=== PATIENT | female | born 1985 | race Caucasian/White ===

== ENCOUNTER → 2018-01-08 | Outpatient (CLI) | payer OTHER | END | disposition home or self-care (01) | LOC: KCIC US 13:24 | DX: Z34.92 Encounter for supervision of normal pregnancy, unspecified, second trimester (principal); Z3A.18 18 weeks gestation of pregnancy | CPT/HCPCS: 76805 ==

== ENCOUNTER 2018-06-07 19:03 | Inpatient (IN) | payer OTHER ==
[~2018-06-07] VITALS: Ht 160 cm; Wt 64.0 kg
[2018-06-07] MEDS ORDERED: 0.9 % SODIUM CHLORIDE 10 ML DISP.SYRIN. IV PRN (19:15)
[2018-06-07] MEDS ORDERED: TERBUTALINE 1 MG/ML VIAL. SQ PRN (19:15)
[2018-06-07] MEDS ORDERED: LIDOCAINE 1% PF 30 ML VIAL. INJ PRN (19:15)
[2018-06-07] MEDS ORDERED: OXYTOCIN 30 UNIT/500 ML PREMIX 500 ML IV PRN (19:15)
[2018-06-07] MEDS ORDERED: ONDANSETRON PF 4 MG/2 ML VIAL. IV PRN (19:15)
[2018-06-07] MEDS ORDERED: fentaNYL PF VIAL 100 MCG/2 ML VIAL IV PRN ×2 (19:15)
[2018-06-07] MEDS ORDERED: DINOPROSTONE 10 MG SUPP.VAG VG ONE (19:30)
[2018-06-07] MEDS ORDERED: PENICILLIN G K 5,000,000 UNIT in IV DEXTROSE 5% 100ML 100 ML IV ONE (19:30)
[2018-06-07 19:51] LABS: BILIRUBIN,URINE NEGATIVE (NEG); CLARITY,URINE CLEAR; COLOR,URINE YELLOW; NITRITE,URINE NEGATIVE (NEG); PH,URINE 6.5; PROTEIN,URINE NEGATIVE (NEG-TRACE); UROBILINOGEN,URINE 0.2 mg/dL (0.2 mg/dL)
[2018-06-07 20:02] LABS: BACTERIA,URINE FEW /HPF (0-FEW); SQUAMOUS EPITHELIAL CELL,UR MOD /LPF
[2018-06-07] MEDS: IV RINGERS,LACTATED 1000ML 1,000 ML IV SCH (20:25)
[2018-06-07 20:32] LABS: BASO % 0 % (0-3); EOS # 0.2 x10^3/uL (0.0-0.7); EOS % 2 % (0-3); HEMATOCRIT 36.1 % (36.0-47.0); HEMOGLOBIN 12.7 g/dL (12.0-15.5); LYMPH # 1.3 x10^3/uL (1.0-4.8); LYMPH % 15 % (24-48); MEAN CORPUSCULAR HEMOGLOBIN 32 pg (25-35); MEAN CORPUSCULAR HGB CONC 35 g/dL (31-37); MEAN CORPUSCULAR VOLUME 91 fL (79-100); MONO # 0.7 x10^3/uL (0.0-1.1); MONO % 8 % (0-9); NEUT # 6.4 x10^3uL (1.8-7.7); NEUT % 75 % (31-73); PLATELET COUNT 143 x10^3/uL (140-400); RED BLOOD COUNT 3.97 x10^6/uL (3.50-5.40); RED CELL DISTRIBUTION WIDTH 12.6 % (11.5-14.5); WHITE BLOOD COUNT 8.5 x10^3/uL (4.0-11.0)
[2018-06-07 21:07] LABS: PLT ESTIMATE ADEQUATE (ADEQUATE)
[2018-06-07] MEDS ORDERED: PENICILLIN G K 2,500,000 UNIT in IV DEXTROSE 5% 50 ML IV SCH (23:30)
[2018-06-08] MEDS ORDERED: PENICILLIN G K 5,000,000 UNIT in IV DEXTROSE 5% 100ML 100 ML IV ONE (06:00)
[2018-06-08] MEDS: OXYTOCIN 30 UNIT/500 ML PREMIX 500 ML IV PRN (06:47)
[2018-06-08 07:42] VITALS: BP 124/76
--- NOTE | 2018-06-08 08:19 | PDOC1 ---
OB - History Hx of Present Care: Good Care Ultrasounds: Normal mid trimester US Obstetrical Complications: None Medical Complications: None Past Family/Social History * Past Medical, Surgical, Family and Obstetric Histories reviewed from chart. Rubella: Immune RPR/VDRL: Negative GBS Status: Positive HBsAG: Negative OB - Chief Complaint & HPI Date of Admission: Date of Admission: Jun 07, 2018 at 19:03 Chief Complaint/History : 1 Para: 0 EGA: 40 Reason for admission: induction of labor Indication for induction: post dates, maternal discomfort Admission Nurse Assessment Rev: Yes OB - Admission Exam Physical Exam Vitals: VS - Last 72 Hours, by Label Date Time Temp Pulse Resp B/P (MAP) Pulse Ox O2 Delivery O2 Flow Rate FiO2 06/08/18 07:42 97.7 78 16 124/76 (92) 95 Room Air 97.7 HEENT: Normal Heart: Regular Rate Lungs: Clear Abdomen: Gravid, Non tender, Soft Extremities: Edema Reflexes: Normal Cervical Dilatation: 1cm Effacement: 50% Station: -3 Membranes: Intact Heart Rate: Normal Accelerations: Accelerations Present Decelerations: No decelerations Contractions on Admission: None Text A: 40 wks IUP IOL post dates GBS positive P: Admit IOL cervidil, then pitocin. Start Pen G for GBS prophylaxis. JUSTA BURNETT Jr, MD Jun 08, 2018 08:19
[2018-06-08] MEDS: PENICILLIN G K 2,500,000 UNIT in IV DEXTROSE 5% 50 ML IV SCH ×2 (11:00→13:57)
[2018-06-08] MEDS: IV RINGERS,LACTATED 1000ML 1,000 ML IV SCH (11:00)
[2018-06-08] MEDS ORDERED: OXYTOCIN 30 UNIT/500 ML PREMIX 500 ML IV PRN (17:00)
[2018-06-08] MEDS ORDERED: DINOPROSTONE 10 MG SUPP.VAG VG ONE (17:30)
[2018-06-09] MEDS ORDERED: OXYTOCIN PREMIX 30 UNIT/500 ML BAG. IV ONE (06:00)
[2018-06-09] MEDS: PENICILLIN G K 2,500,000 UNIT in IV DEXTROSE 5% 50 ML IV SCH ×3 (06:25→16:19)
[2018-06-09] MEDS: IV RINGERS,LACTATED 1000ML 1,000 ML IV SCH ×3 (06:25→19:30)
--- NOTE | 2018-06-09 08:22 | PDOC ---
OB Progress Note Date of Service 06/09/18 Time of Evaluation 0820 Notes Pt. feeling well. Pt. had cervidil overnight, and now pitocin. Lab Laboratory Tests Test 06/07/18 19:40 06/07/18 20:20 Urine Collection Type Unknown Urine Color Yellow Urine Clarity Clear Urine pH 6.5 Urine Specific [place] 1.010 Urine Protein Negative mg/dL (NEG-TRACE) Urine Glucose (UA) 100 mg/dL (NEG) Urine Ketones (Stick) Negative mg/dL (NEG) Urine Blood Large (NEG) Urine Nitrite Negative (NEG) Urine Bilirubin Negative (NEG) Urine Urobilinogen Dipstick 0.2 mg/dL (0.2 mg/dL) Urine Leukocyte Esterase Small (NEG) Urine RBC 1-2 /HPF (0-2) Urine WBC 11-20 /HPF (0-4) Urine Squamous Epithelial Cells Mod /LPF Urine Bacteria Few /HPF (0-FEW) White Blood Count 8.5 x10^3/uL (4.0-11.0) Red Blood Count 3.97 x10^6/uL (3.50-5.40) Hemoglobin 12.7 g/dL (12.0-15.5) Hematocrit 36.1 % (36.0-47.0) Mean Corpuscular Volume 91 fL (79-100) Mean Corpuscular Hemoglobin 32 pg (25-35) Mean Corpuscular Hemoglobin Concent 35 g/dL (31-37) Red Cell Distribution Width 12.6 % (11.5-14.5) Platelet Count 143 x10^3/uL (140-400) Neutrophils (%) (Auto) 75 % (31-73) Lymphocytes (%) (Auto) 15 % (24-48) Monocytes (%) (Auto) 8 % (0-9) Eosinophils (%) (Auto) 2 % (0-3) Basophils (%) (Auto) 0 % (0-3) Neutrophils # (Auto) 6.4 x10^3uL (1.8-7.7) Lymphocytes # (Auto) 1.3 x10^3/uL (1.0-4.8) Monocytes # (Auto) 0.7 x10^3/uL (0.0-1.1) Eosinophils # (Auto) 0.2 x10^3/uL (0.0-0.7) Basophils # (Auto) 0.0 x10^3/uL (0.0-0.2) Platelet Estimate Adequate (ADEQUATE) Large Platelets Few Treponema pallidum Antibody Nonreactive (Nonreactive) Medications Current Medications Sodium Chloride (Normal Saline Flush) 3 ml QSHIFT PRN IV AFTER MEDS AND BLOOD DRAWS; Start 06/07/18 at 19:15 Ringer's Solution 1,000 ml @ 125 mls/hr Q8H IV Last administered on 06/09/18at 06:25; Start 06/07/18 at 19:30 Fentanyl Citrate (Fentanyl 2ml Vial) 50 mcg PRN Q30MIN PRN IV Mild to moderate pain; Start 06/07/18 at 19:15 Fentanyl Citrate (Fentanyl 2ml Vial) 100 mcg PRN Q30MIN PRN IV Severe pain; Start 06/07/18 at 19:15 Acetaminophen (Tylenol) 650 mg PRN Q6HRS PRN PO MILD PAIN / TEMP; Start at 19:15 Ondansetron HCl (Zofran) 4 mg PRN Q4HRS PRN IV NAUSEA/VOMITING; Start 06/07/18 at 19:15 Terbutaline Sulfate (Brethine) 0.25 mg 1X PRN PRN SQ SEE COMMENTS; Start at 19:15; Stop 06/08/18 at 19:14; Status DC Lidocaine HCl (Xylocaine 1% Pf 30ml Vial) 30 ml 1X PRN PRN INJ SEE COMMENTS; Start 06/07/18 at 19:15; Stop 06/09/18 at 19:14 Oxytocin/Sodium Chloride 500 ml @ 0 mls/hr CONT PRN IV SEE I/O RECORD Last administered on 06/08/18at 06:47; Start 06/07/18 at 19:15 Oxytocin/Sodium Chloride 500 ml @ 0 mls/hr CONT PRN PRN IV Post delivery bleeding; Start 06/07/18 at 19:15 Ibuprofen (Motrin) 800 mg PRN Q6HRS PRN PO PAIN; Start 06/07/18 at 19:15 Penicillin G Potassium [id number] unit/Dextrose 100 ml @ 100 mls/hr 1X ONCE IV ; Start 06/07/18 at 19:30; Stop 06/07/18 at 20:29; Status Cancel Penicillin G Potassium [id number] unit/Dextrose 50 ml @ 100 mls/hr Q4H IV ; Start 06/07/18 at 23:30; Stop 06/07/18 at 23:30; Status DC Dinoprostone (Cervidil) 10 mg 1X ONCE VG Last administered on 06/07/18at 20:25 ; Start 06/07/18 at 19:30; Stop 06/07/18 at 19:31; Status DC Penicillin G Potassium [id number] unit/Dextrose 50 ml @ 100 mls/hr Q4H IV Last administered on 06/08/18at 13:57; Start 06/08/18 at 10:00; Stop 06/09/18 at 05:02 ; Status DC Penicillin G Potassium [id number] unit/Dextrose 100 ml @ 100 mls/hr 1X ONCE IV Last administered on 06/08/18at 06:00; Start 06/08/18 at 06:00; Stop 06/08/18 at 06:59; Status DC Dinoprostone (Cervidil) 10 mg 1X ONCE VG Last administered on 06/08/18at 19:37 ; Start 06/08/18 at 17:30; Stop 06/08/18 at 17:31; Status DC Oxytocin/Sodium Chloride 500 ml @ 0 mls/hr CONT PRN IV SEE I/O RECORD; Start at 17:00 Penicillin G Potassium [id number] unit/Dextrose 50 ml @ 100 mls/hr Q4H IV Last administered on 06/09/18at 06:25; Start 06/09/18 at 06:00 Exam Cvx: 50/-3 Assessment 40+3 wks IUP IOL post dates Plan of Care: Continue current Tx, Mgmt (If no progress, then cervidil # 3 tonight. THen pitocin in am. ) JUSTA BURNETT Jr, MD Jun 09, 2018 08:22
[2018-06-09] MEDS ORDERED: DINOPROSTONE 10 MG SUPP.VAG VG ONE (20:45)
[2018-06-10] MEDS: IV RINGERS,LACTATED 1000ML 1,000 ML IV SCH ×5 (03:30→19:30)
[2018-06-10] MEDS: PENICILLIN G K 2,500,000 UNIT in IV DEXTROSE 5% 50 ML IV SCH ×8 (06:00→22:00)
[2018-06-10 07:31] VITALS: BP 110/67
[2018-06-10] MEDS: OXYTOCIN 30 UNIT/500 ML PREMIX 500 ML IV PRN (07:38)
[2018-06-10] MEDS ORDERED: ROPIVacaine 0.2% IN 0.9%NACL PF 40 MG/20 ML DISP.SYRIN. ONE ×2 (11:00→11:08)
[2018-06-10] MEDS ORDERED: miSOPROStol 200MCG TAB 200 MCG TABLET ONE (11:00)
[2018-06-10] MEDS ORDERED: L&D EPIDURAL 50 ML SYRINGE. EP ONE ×2 (11:00→15:00)
[2018-06-10] MEDS ORDERED: L&D EPIDURAL SYRINGE 50 ML EP ONE (11:09)
[2018-06-10] MEDS ORDERED: BUPIVACAINE MPF 0.25% 10 ML VIAL. EPI PRN (11:15)
[2018-06-10] MEDS ORDERED: L&D EPIDURAL SYRINGE 50 ML EP PRN (11:15)
[2018-06-10] MEDS ORDERED: NALOXONE 0.4 MG/ML VIAL. IV PRN (11:15)
[2018-06-10] MEDS ORDERED: IV RINGERS,LACTATED 1000ML 1,000 ML IV SCH (11:30)
[2018-06-10] MEDS ORDERED: LIDOCAINE 1% PF 30 ML VIAL. ONE (18:59)
[2018-06-10] MEDS ORDERED: miSOPROStol 200MCG TAB 200 MCG TABLET PR ONE (19:30)
--- NOTE | 2018-06-10 21:11 | PDOC ---
VAGINAL DELIVERY DATE DATE: 06/10/18 TIME: 21:09 : 1 Para: 1 EGA: 40 VAGINAL DELIVERY: VTX VACCUM ASSISTED: Yes NUMBER OF PULLS 5 NUMBER OF POP OFFS none MAXIMUM PRESSURE 600 mmhg PLACENTA: Spontaneous 8/9 SEX: Male WEIGHT Weight [2905 gm ] Nuchal Cord: Yes, Times 1 Amniotic Fluid: Clear PAIN: Epidural EPISIOTOMY: No EXTENSION: Yes (2nd degree midline laceration) REPAIRED WITH 2-0 vicryl EBL 300 ml COMPLICATIONS none CONDITION pt. stable Signs of Intrauterine Infectio: None Shoulder Dystocia: No JUSTA BURNETT Jr, MD Jun 10, 2018 21:11
[2018-06-10] MEDS ORDERED: 0.9 % SODIUM CHLORIDE 10 ML DISP.SYRIN. IV PRN (21:15)
[2018-06-10] MEDS ORDERED: oxyCODONE/APAP 5/325 1 TAB TABLET PO PRN (21:15)
[2018-06-10] MEDS ORDERED: SIMETHICONE 80 MG TAB.CHEW PO PRN (21:15)
[2018-06-10] MEDS ORDERED: ACETAMINOPHEN 325 MG TABLET. PO PRN (21:15)
[2018-06-10] MEDS ORDERED: diphenhydrAMINE HCL 25 MG CAPSULE PO PRN (21:15)
[2018-06-10] MEDS ORDERED: MAG HYDROX/ALUMINUM HYD/SIMETH 30 ML ORAL.SUSP PO PRN (21:15)
[2018-06-10] MEDS ORDERED: MMR per PROTOCOL. MC PRN (21:15)
[2018-06-10] MEDS ORDERED: HYDROCORTISONE 1% TOPICAL OINTMENT 30GM TUBE. TP PRN (21:15)
[2018-06-10] MEDS ORDERED: ZOLPIDEM 5 MG TABLET. PO PRN (21:15)
[2018-06-10] MEDS ORDERED: IBUPROFEN 800 MG TABLET. PO PRN (21:15)
[2018-06-10] MEDS ORDERED: BENZOCAINE 20% TOPICAL AEROSOL SPRAY 57GM CAN. TP PRN (21:15)
[2018-06-10] MEDS ORDERED: PHENYLEPH/MINERAL OIL/PETROLAT RECTAL OINTMENT 28GM TUBE. RC PRN (21:15)
[2018-06-10] MEDS ORDERED: OXYTOCIN 30 UNIT/500 ML PREMIX 500 ML IV PRN (21:15)
[2018-06-10] MEDS ORDERED: MAGNESIUM HYDROXIDE 2,400 MG/30 ML ORAL.SUSP. PO PRN (21:15)
[2018-06-10] MEDS: IBUPROFEN 800 MG TABLET. PO PRN (23:29)
[2018-06-10 23:50] VITALS: BP 107/69
[2018-06-11 00:55] VITALS: BP 102/55
[2018-06-11] MEDS: PENICILLIN G K 2,500,000 UNIT in IV DEXTROSE 5% 50 ML IV SCH ×5 (02:00→18:00)
[2018-06-11] MEDS: IV RINGERS,LACTATED 1000ML 1,000 ML IV SCH ×3 (03:30→19:30)
[2018-06-11 04:30] VITALS: BP 93/48
[2018-06-11 04:41] LABS: BASO # 0.1 x10^3/uL (0.0-0.2); BASO % 0 % (0-3); EOS % 0 % (0-3); HEMATOCRIT 26.3 % (36.0-47.0); HEMOGLOBIN 9.3 g/dL (12.0-15.5); LYMPH # 0.9 x10^3/uL (1.0-4.8); LYMPH % 4 % (24-48); MEAN CORPUSCULAR HEMOGLOBIN 32 pg (25-35); MEAN CORPUSCULAR HGB CONC 35 g/dL (31-37); MEAN CORPUSCULAR VOLUME 92 fL (79-100); MONO # 1.1 x10^3/uL (0.0-1.1); MONO % 5 % (0-9); NEUT # 18.5 x10^3uL (1.8-7.7); NEUT % 90 % (31-73); PLATELET COUNT 120 x10^3/uL (140-400); RED BLOOD COUNT 2.88 x10^6/uL (3.50-5.40); RED CELL DISTRIBUTION WIDTH 12.6 % (11.5-14.5); WHITE BLOOD COUNT 20.5 x10^3/uL (4.0-11.0)
[2018-06-11 05:26] LABS: % BANDS 11 % (0-9); % LYMPHS 2 % (24-48); % MONOS 4 % (0-10); % SEGS 83 % (35-66)
[2018-06-11 05:27] LABS: PLT ESTIMATE ADEQUATE (ADEQUATE)
[2018-06-11 05:50] VITALS: BP 94/49
[2018-06-11 08:00] VITALS: BP 104/64
--- NOTE | 2018-06-11 08:10 | PDOC ---
OB Progress Note Date of Service 06/11/18 Time of Evaluation 0810 Notes Pt. feeling well. No complaints. Lab Laboratory Tests Test 06/11/18 04:25 White Blood Count 20.5 x10^3/uL (4.0-11.0) Red Blood Count 2.88 x10^6/uL (3.50-5.40) Hemoglobin 9.3 g/dL (12.0-15.5) Hematocrit 26.3 % (36.0-47.0) Mean Corpuscular Volume 92 fL (79-100) Mean Corpuscular Hemoglobin 32 pg (25-35) Mean Corpuscular Hemoglobin Concent 35 g/dL (31-37) Red Cell Distribution Width 12.6 % (11.5-14.5) Platelet Count 120 x10^3/uL (140-400) Neutrophils (%) (Auto) 90 % (31-73) Lymphocytes (%) (Auto) 4 % (24-48) Monocytes (%) (Auto) 5 % (0-9) Eosinophils (%) (Auto) 0 % (0-3) Basophils (%) (Auto) 0 % (0-3) Neutrophils # (Auto) 18.5 x10^3uL (1.8-7.7) Lymphocytes # (Auto) 0.9 x10^3/uL (1.0-4.8) Monocytes # (Auto) 1.1 x10^3/uL (0.0-1.1) Eosinophils # (Auto) 0.0 x10^3/uL (0.0-0.7) Basophils # (Auto) 0.1 x10^3/uL (0.0-0.2) Segmented Neutrophils % 83 % (35-66) Band Neutrophils % 11 % (0-9) Lymphocytes % 2 % (24-48) Monocytes % 4 % (0-10) Platelet Estimate Adequate (ADEQUATE) Large Platelets Occ Laboratory Tests Test 06/11/18 04:25 White Blood Count 20.5 x10^3/uL (4.0-11.0) Red Blood Count 2.88 x10^6/uL (3.50-5.40) Hemoglobin 9.3 g/dL (12.0-15.5) Hematocrit 26.3 % (36.0-47.0) Mean Corpuscular Volume 92 fL (79-100) Mean Corpuscular Hemoglobin 32 pg (25-35) Mean Corpuscular Hemoglobin Concent 35 g/dL (31-37) Red Cell Distribution Width 12.6 % (11.5-14.5) Platelet Count 120 x10^3/uL (140-400) Neutrophils (%) (Auto) 90 % (31-73) Lymphocytes (%) (Auto) 4 % (24-48) Monocytes (%) (Auto) 5 % (0-9) Eosinophils (%) (Auto) 0 % (0-3) Basophils (%) (Auto) 0 % (0-3) Neutrophils # (Auto) 18.5 x10^3uL (1.8-7.7) Lymphocytes # (Auto) 0.9 x10^3/uL (1.0-4.8) Monocytes # (Auto) 1.1 x10^3/uL (0.0-1.1) Eosinophils # (Auto) 0.0 x10^3/uL (0.0-0.7) Basophils # (Auto) 0.1 x10^3/uL (0.0-0.2) Segmented Neutrophils % 83 % (35-66) Band Neutrophils % 11 % (0-9) Lymphocytes % 2 % (24-48) Monocytes % 4 % (0-10) Platelet Estimate Adequate (ADEQUATE) Large Platelets Occ Medications Current Medications Sodium Chloride (Normal Saline Flush) 3 ml QSHIFT PRN IV AFTER MEDS AND BLOOD DRAWS; Start 06/07/18 at 19:15 Ringer's Solution 1,000 ml @ 125 mls/hr Q8H IV Last administered on 06/10/18at 13:19; Start 06/07/18 at 19:30 Fentanyl Citrate (Fentanyl 2ml Vial) 50 mcg PRN Q30MIN PRN IV Mild to moderate pain; Start 06/07/18 at 19:15 Fentanyl Citrate (Fentanyl 2ml Vial) 100 mcg PRN Q30MIN PRN IV Severe pain; Start 06/07/18 at 19:15 Acetaminophen (Tylenol) 650 mg PRN Q6HRS PRN PO MILD PAIN / TEMP; Start at 19:15 Ondansetron HCl (Zofran) 4 mg PRN Q4HRS PRN IV NAUSEA/VOMITING Last administered on 06/11/18at 02:08; Start 06/07/18 at 19:15 Terbutaline Sulfate (Brethine) 0.25 mg 1X PRN PRN SQ SEE COMMENTS; Start at 19:15; Stop 06/08/18 at 19:14; Status DC Lidocaine HCl (Xylocaine 1% Pf 30ml Vial) 30 ml 1X PRN PRN INJ SEE COMMENTS; Start 06/07/18 at 19:15; Stop 06/09/18 at 19:14; Status DC Oxytocin/Sodium Chloride 500 ml @ 0 mls/hr CONT PRN IV SEE I/O RECORD Last administered on 06/10/18at 07:38; Start 06/07/18 at 19:15 Oxytocin/Sodium Chloride 500 ml @ 0 mls/hr CONT PRN PRN IV Post delivery bleeding; Start 06/07/18 at 19:15 Ibuprofen (Motrin) 800 mg PRN Q6HRS PRN PO PAIN MODERATE Last administered on at 23:29; Start 06/07/18 at 19:15 Penicillin G Potassium 4371118 unit/Dextrose 100 ml @ 100 mls/hr 1X ONCE IV ; Start 06/07/18 at 19:30; Stop 06/07/18 at 20:29; Status Cancel Penicillin G Potassium 2400686 unit/Dextrose 50 ml @ 100 mls/hr Q4H IV ; Start 06/07/18 at 23:30; Stop 06/07/18 at 23:30; Status DC Dinoprostone (Cervidil) 10 mg 1X ONCE VG Last administered on 06/07/18at 20:25 ; Start 06/07/18 at 19:30; Stop 06/07/18 at 19:31; Status DC Penicillin G Potassium [id number] unit/Dextrose 50 ml @ 100 mls/hr Q4H IV Last administered on 06/08/18at 13:57; Start 06/08/18 at 10:00; Stop 06/09/18 at 05:02 ; Status DC Penicillin G Potassium 6085581 unit/Dextrose 100 ml @ 100 mls/hr 1X ONCE IV Last administered on 06/08/18at 06:00; Start 06/08/18 at 06:00; Stop 06/08/18 at 06:59; Status DC Dinoprostone (Cervidil) 10 mg 1X ONCE VG Last administered on 06/08/18at 19:37 ; Start 06/08/18 at 17:30; Stop 06/08/18 at 17:31; Status DC Oxytocin/Sodium Chloride 500 ml @ 0 mls/hr CONT PRN IV SEE I/O RECORD; Start at 17:00 Penicillin G Potassium [id number] unit/Dextrose 50 ml @ 100 mls/hr Q4H IV Last administered on 06/10/18at 17:36; Start 06/09/18 at 06:00 Oxytocin/Sodium Chloride (Oxytocin Premix Infusion) 30 unit STK-MED ONCE IV ; Start 06/09/18 at 06:00; Stop 06/09/18 at 13:21; Status DC Dinoprostone (Cervidil) 10 mg 1X ONCE VG Last administered on 06/09/18at 21:19 ; Start 06/09/18 at 20:45; Stop 06/09/18 at 20:46; Status DC Ringer's Solution 1,000 ml @ 1,000 mls/hr Q1H IV ; Start 06/10/18 at 11:30; Stop 06/10/18 at 12:29; Status DC Naloxone HCl (Narcan) 0.04 mg PRN Q1MIN PRN IV SEE COMMENTS; Start 06/10/18 at 11:15 Bupivacaine HCl (Sensorcaine-Mpf 0.25%) 10 ml PRN 1X PRN EPI FOR ANESTHESIA; Start 06/10/18 at 11:15; Stop 06/11/18 at 11:14 Ropivacaine/ Fentanyl/NS 50 ml @ 14 mls/hr CONT PRN EP PAIN; Start 06/10/18 at 11:15 Ropivacaine/ Sodium Chloride (ROPIVacaine 0.2% - 0.9%NACL PF) 40 mg STK-MED ONCE .ROUTE ; Start 06/10/18 at 11:08; Stop 06/10/18 at 11:09; Status DC Ropivacaine/ Fentanyl/NS 50 ml @ As Directed STK-MED ONCE EP ; Start 06/10/18 at 11:09; Stop 06/10/18 at 11:10; Status DC Misoprostol (Cytotec 200mcg Tab) 800 mcg 1X ONCE VA ; Start 06/10/18 at 19:30; Stop 06/10/18 at 19:31; Status DC Lidocaine HCl (Xylocaine 1% Pf 30ml Vial) 30 ml STK-MED ONCE .ROUTE ; Start at 18:59; Stop 06/10/18 at 19:00; Status DC Sodium Chloride (Normal Saline Flush) 10 ml QSHIFT PRN IV AFTER MEDS AND BLOOD DRAWS; Start 06/10/18 at 21:15 Oxytocin/Sodium Chloride 500 ml @ 62.5 mls/hr CONT PRN IV SEE I/O RECORD; Start 06/10/18 at 21:15; Stop 06/11/18 at 05:14; Status DC Acetaminophen (Tylenol) 650 mg PRN Q6HRS PRN PO MILD PAIN / TEMP; Start at 21:15 Ibuprofen (Motrin) 800 mg PRN Q8HRS PRN PO INFLAMMATION/PAIN PREVENTION; Start 06/10/18 at 21:15 Docusate Sodium (Colace) 100 mg PRN BID PRN PO CONSTIPATION; Start 06/10/18 at 21:15 Magnesium Hydroxide (Milk Of Magnesia) 2,400 mg PRN DAILY PRN PO CONSTIPATION; Start 06/10/18 at 21:15 Al Hydroxide/Mg Hydroxide (Mylanta Plus Xs) 30 ml PRN Q4HRS PRN PO HEARTBURN / GAS; Start 06/10/18 at 21:15 Simethicone (Gas-X) 80 mg PRN AFTMEALHC PRN PO GAS / BLOATING; Start 06/10/18 at 21:15 Diphenhydramine HCl (Benadryl) 25 mg PRN Q6HRS PRN PO ITCHING; Start 06/10/18 at 21:15 Benzocaine (Americaine) 1 spray PRN QID PRN TP TOPICAL PAIN Last administered on 06/10/18at 23:29; Start 06/10/18 at 21:15 Phenyleph/Shark Oil/Min Oil/Petrol (Preparation H) 1 gilberto PRN QID PRN RC RECTAL PAIN; Start 06/10/18 at 21:15 Hydrocortisone (Cortaid) 1 gilberto PRN QID PRN TP PERINEAL PAIN; Start 06/10/18 at 21:15 Ferrous Sulfate (Feosol) 325 mg BIDWMEALS PO ; Start 06/11/18 at 08:00 Zolpidem Tartrate (Ambien) 5 mg PRN QHS PRN PO INSOMNIA, MAY REPEAT X1; Start 06/10/18 at 21:15 Info (Do NOT chart on this placeholder) 1 ea 1X PRN PRN MC SEE COMMENTS; Start 06/10/18 at 21:15 Info (Do NOT chart on this placeholder) 1 ea 1X PRN PRN MC SEE COMMENTS; Start 06/10/18 at 21:15 Oxycodone/ Acetaminophen (Percocet 5/325) 2 tab PRN Q4HRS PRN PO MODERATE PAIN , SEVERE PAIN; Start 06/10/18 at 21:15 Exam Abd: soft, non tender, fundus firm Pelvic: perineum edematous; No signs of active bleeding or expanding hematoma. Assessment PPD#1 s/p VAVD Plan of Care: Continue current Tx, Mgmt JUSTA BURNETT Jr, MD Jun 11, 2018 08:10
[2018-06-11] MEDS: FERROUS SULFATE 325 MG TABLET. PO SCH ×2 (09:54→17:00)
[2018-06-11] MEDS: IBUPROFEN 800 MG TABLET. PO PRN (09:54)
[2018-06-11] MEDS: DOCUSATE SODIUM 100 MG CAPSULE. PO PRN (09:54)
[2018-06-11 17:47] VITALS: BP 84/49
[2018-06-11] MEDS: ACETAMINOPHEN 325 MG TABLET. PO PRN (20:26)
[2018-06-12 01:10] VITALS: BP 108/64
[2018-06-12 06:07] VITALS: BP 100/58
[2018-06-12] MEDS: ACETAMINOPHEN 325 MG TABLET. PO PRN (08:44)
[2018-06-12] MEDS: DOCUSATE SODIUM 100 MG CAPSULE. PO PRN (08:44)
[2018-06-12] MEDS: FERROUS SULFATE 325 MG TABLET. PO SCH (08:44)
--- NOTE | 2018-06-12 15:44 | DISCH ---
DISCHARGE INSTRUCTIONS Condition on Discharge Condition on Discharge: Stable Activity After Discharge Activity Instructions for Disc: Activity as tolerated Lifting Instructions after Dis: No heavy lifting Driving Instructions after Dis: Do not drive today Diet after Discharge Diet after Discharge: Regular Contacting the DRFlorinda after DC Call your doctor for: Concerns you may have Follow-Up Follow up with: Dr. Vila in 6 wks. JUSTA VILA Jr, MD Jun 12, 2018 15:44
--- NOTE | 2018-06-12 15:44 | PDOC3 ---
Admit Date: 06/08/18 D/c Date: 06/12/18 Admit Dx: Term Gestation IOL secondary post dates D/c Dx: same Procedure: VAVD Surgeon: Dr. [facility] Course: Term gestation for IOL. She had VAVD. D/c Diet: regular D/c INstructions: pelvic rest x 6 wks F/u in 6 wks. JUSTA VILA Jr, MD Jun 12, 2018 15:44
[2018-06-12] MEDS ORDERED: DOCU-109 PO (15:51)
[2018-06-12] MEDS ORDERED: IBUP800T19 PO (15:51)
[2018-06-12] MEDS ORDERED: FERR325T72 PO (15:51)
[2018-06-12] MEDS ORDERED: DIPHTH,PERTUSS(ACELL),TET TOX 0.5 ML DISP.SYRIN. VAX IM ONE (16:30)
--- NOTE | 2018-06-15 10:11 | PATHOLOGY ---
[facility] Accession Number: [id number] . 01 Material submitted: . PLACENTA AND CORD . 01 Clinical history: . , live male 06/10/18 at 2040 . 02 Diagnosis: 407 gram term placenta of an estimated 40 weeks gestation with attached membranes and umbilical cord: - Subchorionic cyst of surface. [facility]/06/14/2018 . 02 Comment: There is no evidence of an acute chorioamnionitis or villitis. There are no infarcts. . (JPM:mml; 06/14/18) . 02 Electronically signed: . Shreyas Bautista MD, Pathologist NPI- [id number] . 01 Gross description: . The specimen is received in formalin, labeled "Dionna Medina, placenta" and consists of a circular lorenzo placenta measuring 15.8 x 14.5 x 2.8 cm and weighing 407 g after removal of membranes and umbilical cord. The membranes are pink-saenz, translucent, and insert marginally with the site of rupture 6.0 cm from edge. The surface is blue-zarco and well vascularized with a surface cyst (2.4 x 1.4 cm) containing gelatinous material. The 3 vessel attached umbilical cord is eccentriccally inserted, 4.3 cm from edge and measures 32.5 x 0.9 cm. Also received is a second clamped segment of umbilical cord measuring 26.8 x 0.9 cm. Both segments of cord are white-saenz and show increased twists. The maternal surface shows complete and intact cotyledons with minimal adherent blood clot and surface calcifications covering roughly 40% of the surface. Sectioning reveals maroon-red and spongy parenchyma. Station Inspector sections are submitted as follows: . A1: surface cyst A2: Membrane roll and periphery A3: Umbilical cord A4: A5: Maternal (SDY; 06/11/2018) SYU/SYU . 02 Pathologist provided ICD-10: O43.893, Z37.0, Z3A.40 . 02 CPT . 072504 Performed at: 01 [facility] [address] [place] [id number] MD Declan Oliva MD Phone: [phone] Performed at: [address] [id number] MD Shreyas Bautista MD Phone: [phone]
== END 2018-06-12 16:44 | disposition home or self-care (01) | DRG 775 ==
LOC: 3 SO LND 19:03 → 3 NORTH 06-10 23:50
PROVIDERS: ADMIT Obstetrics & Gynecology; ATTEND Obstetrics & Gynecology
PROC: 10D07Z6 Extraction of Products of Conception, Vacuum, Via Natural or Artificial Opening (ICD-10-PCS; principal; 2018-06-10)
PROC: 0KQM0ZZ Repair Perineum Muscle, Open Approach (ICD-10-PCS; 2018-06-10)
PROC: 00HU33Z Insertion of Infusion Device into Spinal Canal, Percutaneous Approach (ICD-10-PCS; 2018-06-10)
PROC: 3E0R3BZ Introduction of Anesthetic Agent into Spinal Canal, Percutaneous Approach (ICD-10-PCS; 2018-06-10)
PROC: 3E0234Z Introduction of Serum, Toxoid and Vaccine into Muscle, Percutaneous Approach (ICD-10-PCS; 2018-06-12)
DX: O99.824 Streptococcus B carrier state complicating childbirth (principal); Z37.0 Single live birth; O48.0 Post-term pregnancy; Z3A.40 40 weeks gestation of pregnancy; O69.81X0 Labor and delivery complicated by cord around neck, without compression, not applicable or unspecified; O70.1 Second degree perineal laceration during delivery; Z23 Encounter for immunization
CPT/HCPCS: 36415; 81001; 85007; 85025; 86592; 86850; 86900; 86901; 87086; 88307; 90715; J2405; J2540; J2590; J2795; J7120

== ENCOUNTER → 2020-04-09 | Outpatient (CLI) | payer OTHER ==
[~2020-04-09] MED LIST: DOCU-109 PO; FERR325T72 PO; IBUP800T19 PO
--- NOTE | 2020-04-09 13:54 | RAD ---
EXAM: Pelvic sonogram. HISTORY: Uterine size and dates discrepancy. TECHNIQUE: Sonographic imaging of a gravid uterus was performed. COMPARISON: None. FINDINGS: There is a single intrauterine fetus in cephalic presentation with a normal heart rate of 143 bpm. The cervix is long and closed, measuring 6.1 cm. The anechoic fluid index is normal at 11.3 cm. There is a three-vessel umbilical cord with normal insertion. There is a four-chamber heart. The stomach, kidneys, bladder, spine, brain, facial profile and extremities are unremarkable. There is an anterior placenta without evidence of placenta previa. The biparietal diameter is 5.27 cm, corresponding with 20 weeks and 0 days. The head circumference is 19.36 cm, corresponding with 21 weeks and 4 days. The abdominal circumference is 17.28 cm, corresponding with 20 weeks and 2 days. The femoral length is 3.75 cm, corresponding with 22 weeks and 0 days. The estimated gestational age patient combined also measurements is 20 weeks and 0 days and the estimated weight is 472 g. This corresponds with the 35th percentile for a gestational age of 20 weeks and 2 days based on LMP. IMPRESSION: Single intrauterine fetus with normal heart rate and gestational age based on ultrasound measurements of 20 weeks and 0 days. The anatomy survey is unremarkable. Electronically signed by: Iveth Mott MD (04/09/2020 1:51 PM) [id number]
== END | disposition home or self-care (01) ==
LOC: US 12:06
PROVIDERS: ATTEND Obstetrics & Gynecology
DX: O26.842 Uterine size-date discrepancy, second trimester (principal); Z3A.20 20 weeks gestation of pregnancy
CPT/HCPCS: 76805

== ENCOUNTER → 2020-05-04 | Outpatient (CLI) | payer OTHER ==
[2020-05-04 13:30] LABS: BASO % 0 % (0-3); EOS # 0.2 x10^3/uL (0.0-0.7); EOS % 2 % (0-3); HEMATOCRIT 35.6 % (36.0-47.0); HEMOGLOBIN 12.7 g/dL (12.0-15.5); LYMPH # 1.1 x10^3/uL (1.0-4.8); LYMPH % 14 % (24-48); MEAN CORPUSCULAR HEMOGLOBIN 33 pg (25-35); MEAN CORPUSCULAR HGB CONC 36 g/dL (31-37); MEAN CORPUSCULAR VOLUME 91 fL (79-100); MONO # 0.5 x10^3/uL (0.0-1.1); MONO % 6 % (0-9); NEUT # 5.7 x10^3/uL (1.8-7.7); NEUT % 77 % (31-73); PLATELET COUNT 206 x10^3/uL (140-400); RED BLOOD COUNT 3.91 x10^6/uL (3.50-5.40); RED CELL DISTRIBUTION WIDTH 12.8 % (11.5-14.5); WHITE BLOOD COUNT 7.4 x10^3/uL (4.0-11.0)
== END | disposition home or self-care (01) ==
LOC: LAB 12:04
PROVIDERS: ATTEND Obstetrics & Gynecology
DX: O09.92 Supervision of high risk pregnancy, unspecified, second trimester (principal); Z3A.27 27 weeks gestation of pregnancy
CPT/HCPCS: 36415; 82950; 85025

== ENCOUNTER → 2020-05-17 | Outpatient (CLI) | payer OTHER | END | disposition home or self-care (01) | LOC: LAB 09:58 | PROVIDERS: ATTEND Obstetrics & Gynecology | DX: O09.92 Supervision of high risk pregnancy, unspecified, second trimester (principal); Z3A.21 21 weeks gestation of pregnancy | CPT/HCPCS: 36415; 82947; 82950 ==

== ENCOUNTER → 2021-04-01 | Outpatient (CLI) | payer OTHER ==
[2020-08-18 15:00] VITALS: BP 102/55
== END ==
LOC: SPEC 16:17
PROVIDERS: ATTEND Obstetrics & Gynecology
DX: Z34.91 Encounter for supervision of normal pregnancy, unspecified, first trimester (principal); Z3A.00 Weeks of gestation of pregnancy not specified
CPT/HCPCS: 87086; 87147; 87491; 87591

== ENCOUNTER → 2021-09-20 | Outpatient (CLI) | payer OTHER ==
[2020-08-18 15:00] VITALS: BP 102/55
== END ==
LOC: SPEC 16:39
PROVIDERS: ATTEND Obstetrics & Gynecology
DX: O09.71 Supervision of high risk pregnancy due to social problems, first trimester (principal)
CPT/HCPCS: 87086; 87491; 87591; 87661

== ENCOUNTER → 2021-10-04 | Outpatient (CLI) | payer OTHER ==
[2020-08-18 15:00] VITALS: BP 102/55
--- NOTE | 2021-10-04 17:31 | RAD ---
US OB <14 WKS +TV History: Reason: unsure dates / Spl. Instructions: / History: Comparison: None. Technique: Grayscale and color Doppler imaging of the pelvis was performed using transabdominal techn ique. Findings: The uterus measures 13 x 11 x 10 cm. Single intrauterine gestational sac with regular appearance. Yolk sac is identified. Fetus is identif ied with crown-rump length 5.1 cm. Estimated gestational age by ultrasound 11 weeks 6 days. hea rt rate 162 bpm. No perigestational fluid collection. Estimated date of delivery by ultrasound April 19, 2022. Right ovary measures 3.2 x 2.4 x 2.5 cm. Dominant right ovarian follicle measures 2.2 cm. Left ovary measures 3.0 x 1.7 x 1.4 cm. Normal Doppler flow to the ovaries bilaterally. IMPRESSION: 1. Single intrauterine with gestational age 11 weeks 6 days and heart rate 162 beats per minutes. Recommend routine anatomic screening at 18-22 weeks. Electronically signed by: Jeremy Carrillo DO (10/04/2021 5:29 PM) [id number]
== END ==
LOC: US 14:24
PROVIDERS: ATTEND Obstetrics & Gynecology
DX: O09.71 Supervision of high risk pregnancy due to social problems, first trimester (principal); Z3A.11 11 weeks gestation of pregnancy
CPT/HCPCS: 76801

== ENCOUNTER → 2021-11-08 | Outpatient (CLI) | payer OTHER ==
[2020-08-18 15:00] VITALS: BP 102/55
[2021-11-08 11:37] LABS: HEMATOCRIT 36.9 % (36.0-47.0); HEMOGLOBIN 12.8 g/dL (12.0-15.5); RED BLOOD COUNT 4.13 x10^6/uL (3.50-5.40); RED CELL DISTRIBUTION WIDTH 14.1 % (11.5-14.5); WHITE BLOOD COUNT 5.3 x10^3/uL (4.0-11.0)
[2021-11-09 16:09] LABS: RUBELLA IGG ANTIBODY 1.89 index (Immune >0.99)
== END ==
LOC: LAB 10:55
PROVIDERS: ATTEND Obstetrics & Gynecology
DX: O09.72 Supervision of high risk pregnancy due to social problems, second trimester (principal)
CPT/HCPCS: 81511; 85027; 85660; 86592; 86703; 86762; 86787; 86803; 86850; 86900; 86901; 87340

== ENCOUNTER → 2021-11-29 | Outpatient (CLI) | payer OTHER ==
[2020-08-18 15:00] VITALS: BP 102/55
--- NOTE | 2021-11-29 09:04 | RAD ---
EXAM: OB ULTRASOUND, > 14 WEEKS HISTORY: anatomy survey. COMPARISON: 10/04/2021 TECHNIQUE: Multiple grayscale images, color Doppler, and M-mode images of the uterus are obtained. FINDINGS: There is a single intrauterine gestation in cephalic presentation. 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 The amniotic fluid index is grossly l. The cervix measures 6.1 cm in length. There Biometrical data: BPD = 4.68 cm for 20 weeks 1 days. HC = 17.57 cm for 20 weeks 1 days. AC = 15.12 cm for 20 weeks 2 days. FL = 2.96 cm for 19 weeks 1 days. HC/AC ratio = 1.16. Overall, the estimated sonographic gestational age is 20 weeks and 0 days for an estimated date of de livery of 04/18/2022. The estimated date of delivery provided by the last menstrual period is 04/17/2022 . Estimated weight is 513 grams. A 4 chamber heart is identified with positive cardiac activity. The estimated heart rate is 137 beats per minute. The bilateral upper and lower extremities are identified. There is a three-vessel cord with cord insertion visualized. The stomach, kidneys, and bladder are seen. The spine and brain are unremarkable. No obvious anatomic abnormalities are identified. The maternal adnexal regions are unremarkable. IMPRESSION: 1. Single intrauterine fetus with normal heart rate and gestational age based on ultrasound measureme nts of 20 weeks and 0 days. 2. Unremarkable anatomy survey. Electronically signed by: Iveth Mott MD (11/29/2021 9:02 AM) [id number]
== END ==
LOC: US 07:15
PROVIDERS: ATTEND Obstetrics & Gynecology
DX: Z34.92 Encounter for supervision of normal pregnancy, unspecified, second trimester (principal); Z3A.20 20 weeks gestation of pregnancy
CPT/HCPCS: 76805

== ENCOUNTER → 2022-01-17 | Outpatient (CLI) | payer OTHER ==
[2020-08-18 15:00] VITALS: BP 102/55
[2022-01-17 11:37] LABS: HEMATOCRIT 36.2 % (36.0-47.0); HEMOGLOBIN 11.9 g/dL (12.0-15.5); RED BLOOD COUNT 3.94 x10^6/uL (3.50-5.40); RED CELL DISTRIBUTION WIDTH 12.6 % (11.5-14.5); WHITE BLOOD COUNT 6.5 x10^3/uL (4.0-11.0)
== END ==
LOC: LAB 10:12
PROVIDERS: ATTEND Obstetrics & Gynecology
DX: Z34.93 Encounter for supervision of normal pregnancy, unspecified, third trimester (principal)
CPT/HCPCS: 36415; 82950; 85027